=== PATIENT | male | born 1960 ===

== ENCOUNTER 2016-05-16 21:04 | Inpatient (IN) ==
[2016-05-16] MEDS ORDERED: MEROPENEM 1,000 MG in SODIUM CHLORIDE 0.9% 100 ML IV STA (21:26)
[2016-05-16] MEDS ORDERED: SODIUM CHLORIDE 0.9% 1,000 ML IV STA (21:26)
[2016-05-16] MEDS ORDERED: ONDANSETRON 4 MG/2 ML VIAL IV STA (21:26)
[2016-05-16] MEDS ORDERED: methylPREDNISolone SOD SUC 125 MG/2 ML VIAL IV STA (21:26)
[2016-05-16] MEDS ORDERED: ALBUTEROL 2.5 MG/3 ML NEB RESP TX SCH (21:30)
[2016-05-16 21:40] LABS: Basophils # 0.1 10*3/uL (0.0-0.2); Basophils % 0.3 % (0.0-0.8); Hematocrit 33.3 VOL% (42.0-52.0); Hemoglobin 10.4 GM/DL (14.0-18.0); Immature Granulocytes % 0.6 %; Immature Granulocytes Absolute 0.11 #; Lymphocytes # 0.1 10*3/uL (1.4-4.0); Lymphocytes % 0.8 % (21.2-54.2); Mean Corpuscular HGB Conc 31.2 GM/DL (32-36); Mean Corpuscular Hemoglobin 28 PG (27-34); Mean Corpuscular Volume 89.5 FL (87-102); Mean Platelet Volume 14.2 FL (9.6-12.0); Monocytes % 5.1 % (1.7-12.7); NRBC # 0.02 10*3/uL; Neutrophils # 17.2 10*3/uL (1.4-7.4); Neutrophils % 93.2 % (38.7-73.9); Platelet Count 126 T/CUMM (130-400); Red Blood Count 3.72 MC/CUMM (3.8-5.5); Red Cell Distribution Width 16.5 % (9.3-17.3); White Blood Count 18.5 T/CUMM (4-12)
--- NOTE | 2016-05-16 21:43 | Emergency Department Note ---
Arrival - Arrival Chief Complaint: Shortness of Breath Stated Complaint: short of breath ED Nursing Triage Note: pt to room per [facility] ems. pt had radiation wednesday. pt luis sandoval for pharogeal ca. blood glucose 482 per ems. pt coughing thick secretions. sats. 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 The patient has been treated for his pharyngeal carcinoma with radiation and chemotherapy. After a radiation treatment 10 days ago he had acute erythema and progressive edema of the face and scalp. From what the relates radiation was continued with ever increasing allergic breakdown of the face and head. Currently the patient appears more like a burn patient rather than an allergic reaction.he is in obvious respiratory distress and frequently has periods of significant productive cough with difficulty clearing sputum. Because of his condition he cannot even speak to give his history and what history has been gleaned, is from the . Onset (ago): day(s) (Patient presents 6 days post onset of symptoms) Consistency: constant Severity: severe Allergies/Adverse Reactions: Allergies Allergy/AdvReac Type Severity Reaction Status Date / Time No Known Allergies Allergy Verified 05/16/16 21:14 Home Medications: Home Medications Medication Instructions Recorded Confirmed Type Doxycycline Monohydrate 20 ml PEG BID 05/16/16 05/16/16 History HYDROcodone/ACETAMIN 7.5-325 1 tablet PEG Q4-6H 05/16/16 05/16/16 History [[place] 7.5-325] Nystatin [Nystatin Oral Susp] 5 ml PEG QID 05/16/16 05/16/16 History diphenhydrAMINE HCl 2 teaspoon PEG Q12HR 05/16/16 05/16/16 History [DiphenhydrAMINE Liquid] prednisoLONE LIQUID [prednisoLONE 4 ml PEG BID 05/16/16 05/16/16 History Soln] Review of System - Review of System 12 point system: reviewed and no additional remarkable complaints except as stated - Review of System Constitutional: Present: as per HPI Respiratory: Present: as per HPI Skin: Present: as per HPI Medical,Surgical,& Family Hx - Medical History Cardio: History of: Hypertension Neurology: No history of: Seizures HEENT: History of: Ear Problem ([place]), Eye Problem (GLASSES), Dental Problems, Oral Cancer (nasopahryngeal) Endocrine: History of: Diabetes Mellitus (NIDDM) Musculoskeletal: History of: Back/Neck Problems (NECK PAIN) - Family History Family History: Reports;: Family Cancer (BROTHER), Family Diabetes (SISTER), Family Hypertension (SISTER), Family Stroke (FATHER) - Social History Smoking Status: Smoker, status unknown Frequency of Alcohol Use: None Type of Drug Use: Unknown Exam Physical Examination: GENERAL: Chronically ill ill appearing male with frequent paroxysms of cough. HEENT: Normocephalic. Extensive's called the skin of the face and scalp secondary to presumed radiation reaction. Dirt dry mucous membranes mucous membranes. EOMI. PERRLA. Ear nose and throat reveal parched lining NECK: Supple. No adenopathy. CARDIAC: Regular. No murmurs. Heart rate 130 CHEST: Diffuse large airway rhonchi. Moderate respiratory distress. O2 sat 90% ABDOMEN: Soft. Nontender. Active bowel sounds. Feeding gastrostomy noted EXTREMITIES: No trauma. Normal ROM. No pedal edema. SKIN: No diaphoresis. No rash. Scalded skin as above NEURO: Alert. Oriented 3. Motor, sensory, vibratory intact. No focal deficits. Vital Signs: Vital Signs Temperature 99.6 F 05/16/16 21:04 Pulse Rate 142 H 05/16/16 22:00 Respiratory Rate 22 05/16/16 22:00 Blood Pressure 112/72 05/16/16 22:00 O2 Sat by Pulse Oximetry 99 05/16/16 22:00 Course - Reevaluation(s) Reevaluation #1: Discussed with family the need for hospitalization and the critical nature of his disease. - Consultations Consultation #1: Discussed with Dr. Murdock of oncology who will admit the patient for further evaluation treatment. Results - Labs CBC & BMP: 05/16/16 21:14 05/16/16 21:14 Labs: I have reviewed the laboratory and noted the elevated white blood cell count BUN liver function studies and greatly elevated blood sugar - Diagnostic Findings Procedure: Chest x-ray: image reviewed by me, report reviewed by me (Bilateral pneumonia and presumed bilateral metastatic masses) Disposition Clinical Impression: Bilateral pneumonia, Hyperglycemia, Metastatic pharyngeal carcinoma Case discussed with: patient's family Disposition: Still a Patient Condition: Critical Time of Disposition: 22:32
[2016-05-16] MEDS ORDERED: TERBUTALINE 1 MG/1 ML VIAL SUBCUT ONE (21:45)
[2016-05-16] MEDS ORDERED: MEROPENEM 1,000 MG VIAL IV ONE (21:45)
[2016-05-16] MEDS ORDERED: ONDANSETRON 4 MG/2 ML VIAL ONE (21:46)
[2016-05-16] MEDS ORDERED: methylPREDNISolone SOD SUC 125 MG/2 ML VIAL ONE (21:46)
[2016-05-16 21:48] LABS: INR 1.1; PT Patient Result 12.2 SECS; Partial Thromboplastin Time 34.2 SECS (0-40)
[2016-05-16 21:54] LABS: Alanine Aminotransferase 122 U/L (16-61); Albumin 2.1 G/DL (3.4-5.0); Alkaline Phosphatase 153 U/L (45-117); Aspartate Amino Transferase 114 U/L (0-37); Blood Urea Nitrogen 71 MG/DL (7-18); Calcium 9.3 MG/DL (8.5-10.1); Osmolality,Calculated 328.1 MOS/KG (273-304); Potassium 4.3 MMOL/L (3.5-5.1); Sodium 142 MMOL/L (136-145); Total Protein 5.8 G/DL (6.4-8.3); Troponin I Only < 0.015 NG/ML (0.00-0.045)
[2016-05-16] MEDS: TERBUTALINE 1 MG/1 ML VIAL SUBCUT SCH ×2 (21:55→22:21)
[2016-05-16 21:56] LABS: Glucose 554 MG/DL (74-106)
--- NOTE | 2016-05-16 22:00 | XRay Report ---
Portable chest Date: 05/16/2016 Clinical history: Shortness of breath Comparison: 02/09/2016 Technique: Portable AP sitting chest Findings: The heart is larger in size. Progressive diffuse parenchymal findings in both lungs with nodular-appearing densities which are more pronounced on the left. Persistent relative elevation of the right hemidiaphragm with small pleural effusions. Stable mediastinum with degenerative changes. Interposition of right with progressive gaseous distention. Post operative findings in the upper abdomen. Impression: Findings consistent with bilateral pneumonia. However there are indeterminate nodular densities and follow-up chest x-ray recommended to exclude masses. Interposition of the bowel the right with progressive gaseous distention of the abdomen which could be related to ileus, distal bowel obstruction, etc. PROCEDURE INTERPRETED AT [facility] DEPARTMENT OF RADIOLOGY Final Report Signed by: Dr. Farzana Hayes
[2016-05-16 22:11] LABS: Band Neutrophils 2 % (0-10); Lymphocytes 1 % (20-55); Segmented Neutrophils 96 % (50-85); Total Cells Counted 100
[2016-05-16] MEDS ORDERED: INSULIN REGULAR 100 UNIT/ML SUBCUT STA (22:11)
[2016-05-16] MEDS ORDERED: INSULIN REGULAR 100 UNIT/ML IV STA (22:11)
[2016-05-16] MEDS ORDERED: SODIUM CHLORIDE 0.9% 2,000 ML IV STA (22:11)
[2016-05-16] MEDS ORDERED: INSULIN REGULAR 100 UNIT/ML ONE (22:15)
[2016-05-16] MEDS ORDERED: VANCOMYCIN INJ 1,000 MG in SODIUM CHLORIDE 0.9% 250 ML IV STA (22:21)
[2016-05-16] MEDS ORDERED: ONDANSETRON 4 MG/2 ML VIAL IV PRN (22:24)
[2016-05-16] MEDS ORDERED: HYDROmorphone 2 MG/1 ML VIAL IV PRN (22:24)
[2016-05-16] MEDS ORDERED: INSULIN REGULAR DRIP 100 ML IV SCH (22:30)
[2016-05-16] MEDS ORDERED: SODIUM CHLORIDE 0.9% 1,000 ML IV SCH (22:30)
[2016-05-16] MEDS ORDERED: VANCOMYCIN 1,000 MG VIAL ONE (23:01)
[2016-05-16 23:15] LABS: Apearance,Urine CLEAR (Clear); Bilirubin,Urine Negative (Negative); Blood, Urine Negative (Negative); Glucose,Urine (UA) >=500 mg/dL (Negative); Ketones,Urine Negative (Negative); Mucus,Urine Occasional /LPF (Occasional); Nitrite,Urine Negative (Negative); Protein,Urine Negative; Urine Color Yellow (Yellow); Urine Specific Gravity 1.018 (1.001-1.035); Urine Urobilinogen < 2.0 EU/DL (0.2-1.0); WBC,Urine 4 /HPF (0-6)
[2016-05-16] MEDS: ALBUTEROL/IPRATROPIUM 3 ML NEB RESP TX SCH (23:20)
[2016-05-17 00:50] LABS: Apearance,Urine CLEAR (Clear); Bilirubin,Urine Negative (Negative); Blood, Urine Small mg/dL (Negative); Glucose,Urine (UA) >=500 mg/dL (Negative); Hyaline Casts,Urine 1 /LPF (0-3); Ketones,Urine Negative (Negative); Nitrite,Urine Negative (Negative); Protein,Urine Negative; RBC,Urine 2 /HPF (0-4); Squamous Epithelial Cell,Urine Occasional /HPF (0-10); Urine Color Yellow (Yellow); Urine Specific Gravity 1.013 (1.001-1.035); Urine Urobilinogen < 2.0 EU/DL (0.2-1.0); WBC,Urine 25 /HPF (0-6)
--- NOTE | 2016-05-17 00:52 | Oncology History&Physical ---
Assessment and Plan (1) Pneumonia Status: Acute Assessment and plan: bilateral pneumonia on a nonrebreather mask - continue with vanco and meropenem - will check blood cultures - continue with nonrebreather mask - continue with IVF - continue with NEBs scheduled - continue with solumderol 80 mg IV BID covering for radiation pneumonitis and patient on steroids outpatient Current Visit: Yes (2) Diabetes Status: Acute Assessment and plan: glucose > 500 in ER - continue with insulin with fingersticks Current Visit: Yes (3) Head and neck cancer Status: Acute Assessment and plan: metastatic to liver with significant elevations in liver enzymes - significant radiation dermatitis to eyes and forehead - will use lubrifresh and aguaphor to rash - holding chemotherapy while acutely ill - per family wishes patient is DNR/DNI Current Visit: No History of Present Illness Chief complaint: shortness of breath History of present illness: Mr. Alston is a 56 year old male with PMHx of smoker, diabetes and metastatic nasopharyngeal carcinoma currently on chemotherapy and radiation. Per family patient was doing well 1 week ago he started with a productive cough followed by shortness of breath and fevers for last couple days. Per daughter patient had been tolerating chemotherapy well. In ER patient with a significant bilateral pneumonia, LFT elevation, radiation rash, thick sputum, and high oxygen need. Discussed with family very guarded prognosis given severity of pneumonia and metastatic nasopharyngeal carcinoma. Discussed with family code status since on a nonrebreather mask and family wishes for patient to be DNR and DNI. Home Medications Medication Instructions Recorded Confirmed Type Doxycycline Monohydrate 20 ml PEG BID 05/16/16 05/16/16 History HYDROcodone/ACETAMIN 7.5-325 1 tablet PEG Q4-6H 05/16/16 05/16/16 History [[place] 7.5-325] Nystatin [Nystatin Oral Susp] 5 ml PEG QID 05/16/16 05/16/16 History diphenhydrAMINE HCl 2 teaspoon PEG Q12HR 05/16/16 05/16/16 History [DiphenhydrAMINE Liquid] prednisoLONE LIQUID [prednisoLONE 4 ml PEG BID 05/16/16 05/16/16 History Soln] Allergies Allergy/AdvReac Type Severity Reaction Status Date / Time No Known Allergies Allergy Verified 05/16/16 21:14 Medical,Surgical,& Family Hx - Medical History Cardio: History of: Hypertension Psychological: No history of: Violent Behavior Neurology: No history of: Seizures HEENT: History of: Ear Problem ([place]), Eye Problem (GLASSES), Dental Problems, Oral Cancer (nasopahryngeal) Endocrine: History of: Diabetes Mellitus (NIDDM) Musculoskeletal: History of: Back/Neck Problems (NECK PAIN) - Family History Family History: Reports;: Family Cancer (BROTHER), Family Diabetes (SISTER), Family Hypertension (SISTER), Family Stroke (FATHER) - Social History Smoking Status: Smoker, status unknown Frequency of Alcohol Use: None Type of Drug Use: Unknown ROS unobtainable: due to mental status, due to delirium, other (thick secretions unable to communicate well) Exam - Constitutional Vitals: Period Temp Pulse Resp BP Sys/Kyle Pulse Ox Last 24 Hr 99.2 F-99.2 F 136-148 20-39 102-127/66-91 87-98 General appearance: severe distress - Respiratory Respiratory exam: Present: other (bilateral coarse rhonchi) - Cardiovascular Cardiovascular exam: Present: tachycardia - GI/Abdominal GI/Abdominal exam: Absent: guarding, mass, tenderness - Extremities Exam Extremities exam: Present: edema - Neurological Exam Neurological exam: Present: altered Results - Labs CBC & BMP: 05/16/16 21:14 05/16/16 21:14
[2016-05-17] MEDS ORDERED: DEXTROSE 50% 25 GM/50 ML VIAL IV PRN ×2 (01:10→14:44)
[2016-05-17] MEDS ORDERED: GLUCAGON 1 MG VIAL IM PRN ×2 (01:10→14:44)
[2016-05-17] MEDS ORDERED: SKIN HEALING OINT (AQUAPHOR) 50 GM TUBE TOP PRN (01:12)
[2016-05-17] MEDS: SODIUM CHLORIDE 0.9% 1,000 ML IV SCH ×2 (01:48→10:03)
[2016-05-17] MEDS: HEPARIN 5,000 UNIT/1 ML VIAL SUBCUT SCH ×3 (03:12→18:28)
[2016-05-17] MEDS: MORPHINE 2 MG/1 ML SYRINGE IV PRN ×4 (03:12→23:23)
[2016-05-17] MEDS: ALBUTEROL/IPRATROPIUM 3 ML NEB RESP TX SCH ×6 (04:05→23:43)
[2016-05-17] MEDS: INSULIN REGULAR 100 UNIT/ML SUBCUT SCH ×4 (05:09→18:28)
[2016-05-17] MEDS: TERBUTALINE 1 MG/1 ML VIAL SUBCUT SCH (05:16)
[2016-05-17] MEDS ORDERED: methylPREDNISolone SOD SUC 125 MG/2 ML VIAL IV SCH (06:00)
[2016-05-17] MEDS: MEROPENEM 1,000 MG in SODIUM CHLORIDE 0.9% 100 ML IV SCH ×3 (06:02→23:23)
--- NOTE | 2016-05-17 07:32 | XRay Report ---
Exam: XR KUB Date: 05/16/2016 10:10 PM Comparison: 02/06/2016 Indication: Generalized abdominal pain Technique:[Supine abdomen] Findings: Significant progressive gaseous distention of the bowel, especially the colon. The left colon appears more decompressed. It is difficult to evaluate for possible free air with no decubitus film obtained. Probable thickening of the wall of the colon. Persistent postoperative findings with PEG tube. Progressive parenchymal findings in the lungs. Degenerative changes are noted. Progressive soft tissue density in the pelvis.. Impression: Significant progressive gaseous distention of the colon with interposition on the right. This finding could be related to possible ileus, bowel obstruction, etc. PEG tube with postoperative findings. Increased density in the pelvis which could be related to distended urinary bladder, mass, etc. Significant progressive parenchymal findings in the lungs. Follow-up is recommended. PROCEDURE INTERPRETED AT [facility] DEPARTMENT OF RADIOLOGY Final Report Signed by: Dr. Farzana Hayes
[2016-05-17 07:45] LABS: Basophils # 0.1 10*3/uL (0.0-0.2); Basophils % 0.4 % (0.0-0.8); Hematocrit 29.6 VOL% (42.0-52.0); Hemoglobin 9.4 GM/DL (14.0-18.0); Immature Granulocytes % 0.6 %; Immature Granulocytes Absolute 0.08 #; Lymphocytes # 0.1 10*3/uL (1.4-4.0); Lymphocytes % 0.6 % (21.2-54.2); Mean Corpuscular HGB Conc 31.8 GM/DL (32-36); Mean Corpuscular Hemoglobin 29 PG (27-34); Mean Corpuscular Volume 89.7 FL (87-102); Mean Platelet Volume 13.5 FL (9.6-12.0); Monocytes # 0.5 10*3/uL (0.11-0.8); Monocytes % 3.8 % (1.7-12.7); NRBC # 0.02 10*3/uL; Neutrophils # 13.3 10*3/uL (1.4-7.4); Neutrophils % 94.6 % (38.7-73.9); Red Cell Distribution Width 16.3 % (9.3-17.3)
[2016-05-17 07:46] LABS: Platelet Count 106 T/CUMM (130-400)
[2016-05-17 08:05] LABS: Albumin 1.7 G/DL (3.4-5.0); Bilirubin,Total 1.3 MG/DL (0.2-1.0); Calcium 8.6 MG/DL (8.5-10.1); Osmolality,Calculated 319.9 MOS/KG (273-304); Potassium 3.6 MMOL/L (3.5-5.1); Total Protein 4.9 G/DL (6.4-8.3)
[2016-05-17 08:15] LABS: Band Neutrophils 8 % (0-10); Hypochromasia 1+; Ovalocytes Slight; Platelet Estimate Decreased; Segmented Neutrophils 90 % (50-85); Target Cells Few; Total Cells Counted 100
[2016-05-17] MEDS: VANCOMYCIN INJ 1,000 MG in SODIUM CHLORIDE 0.9% 250 ML IV SCH ×2 (08:55→21:18)
[2016-05-17] MEDS: PANTOPRAZOLE 40 MG VIAL IV SCH (08:55)
[2016-05-17 11:29] LABS: ABG Base Excess 2.7 MMOL/L (-2.5-2.5); ABG HCO3 26.8 MMOL/L (20-26); ABG Oxygen Saturation 98.7 % (95-100); ABG PCO2 51.4 MM HG (35-48); ABG PH 7.359 (7.35-7.45); ABG TCO2 26.4 MMOL/L (23-27)
--- NOTE | 2016-05-17 11:29 | XRay Report ---
Portable chest Date: 05/17/2016 Clinical history: Shortness of breath, congestion Comparison: 05/16/2016 Technique: Portable AP sitting chest Findings: The heart is borderline in size. Progressive parenchymal findings especially on the left with multiple nodular densities. Persistent gaseous distention of visualized bowel with prior cholecystectomy. Degenerative changes are noted. Nodular densities. Impression: Progressive pneumonia especially involving the left lung. Multiple indeterminate nodular densities which can be seen with masses. Persistent significant gaseous distention of the visualized bowel with interposition of the bowel on the right. Follow-up recommended. PROCEDURE INTERPRETED AT [facility] DEPARTMENT OF RADIOLOGY Final Report Signed by: Dr. Farzana Hayes
[2016-05-17] MEDS: SODIUM CHLORIDE 0.45% 1,000 ML IV SCH ×2 (12:01→21:24)
[2016-05-17] MEDS ORDERED: DEXTROSE 10% 1,000 ML IV PRN (14:44)
--- NOTE | 2016-05-17 15:00 | Pulmonology Consult Note ---
History of Present Illness Chief complaint: Bilateral pneumonia. Nasopharyngeal carcinoma. History of present illness: Mr. Alston is a 56 year old white male whom I been asked to see in pulmonary consultation. This patient's followed by Dr. Rice. He has been receiving radiation therapy for nasopharyngeal carcinoma. There is nasopharyngeal carcinoma has been metastatic to the supraclavicular areas and the liver. He is also had nodularity in his lungs but that is not definitely known if this is metastatic disease or some other condition. This patient is developed a skin infection with multiple pustules on both sides of his forehead and face he also is a good bit of erythema of his face and scabbing about his nose. He has had a cough productive of purulent sputum. His chest x-ray showed bilateral infiltrates. Patient is not able to give a review of systems. Above is taken from other doctors charts. Allergies. None known Home medicines. See below Past history. Nasopharyngeal carcinoma with bilateral supraclavicular metastases and liver metastases. COPD. High blood pressure. Non-insulin- dependent diabetes chronic back and neck pain. Family history. His brother had a cancer his sister had diabetes and high blood pressure is father had a stroke social history patient is . His says he stopped smoking about a year ago. She said he does not use alcohol. KUB. Ileus Chest x-ray. Heart size is normal. There is a bilateral background of nodules which are fairly homogeneous in both lungs. There are bilateral apical and lower lung infiltrates. No cultures are reported. ABGs on FiO2 of 80% (not on mechanical ventilation). PH is 7.359. PCO2 is 51.4. PO2 is 136. Bicarb is 26.8. Lab. Sodium is 151. Potassium is 3.6 chloride is 113. Creatinine is 0.5. BUN is 43. Glucoses have ranged from 128-554. Total bilirubin is 1.3 transaminases are elevated. Alkaline phosphorus is normal. Protein and albumin are low at 4.9 and 1.7. Globulin is 3.2. Urine is negative. White blood cell count on admission was 18,500 with 93.26. Platelets are 106,000. H& H is 9.4/29.6. The patient's old records were reviewed. Physical exam. Vital signs. See below. General. Patient is arousable but appears acutely and severely ill. Neurologic. Patient's cranial nerves are intact. He moves all 4 extremities. Face. Generalized erythema of forehead eyelids lower face. There is also generalized edema. Eyelids are markedly swollen. There are bilateral pustules over the forehead and these extend somewhat to the lower face. Chest large airway congestion. I do not hear any definite wheezes. Heart. No gallop. Valvular sounds are very loud. Abdomen. Distended. I do not hear any bowel sounds. Lower extremities. Chronic venous stasis. Some edema in a patient who appears to be dehydrated. The remainder the exam is negative or impossible to do in this patient's condition. Impression. 1. 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 Radiation therapy. Chemotherapy. 2. Acute skin infection of the forehead and face. 3. Bilateral pneumonia 4. Background of bilateral pulmonary nodules of undetermined etiology. This could be cancerous or infectious. 5. Significant history of tobacco abuse. Stop smoking a year ago 6. Hypernatremia 7. Ileus. 8. As per Dr. Rice. Prognosis is poor Plan. 1. I agree with vancomycin and Mayte 2. Daily chest x-ray, ABGs, CBC, BMP 3. Doppler venograms of the lower extremities 4. Deep venous thrombophlebitis prevention prophylaxis. I agree with heparin. 5. NG tube with intermittent suction of possible 6. TPN 7. Low dose steroids. Will give Solu-Medrol. 8. Aspirate pustule and sent for Gram stains and cultures 9. Blood cultures. 10. Sputum for Gram stain culture and sensitivity 11. Cold agglutinins 12. Legionella titer 13. See orders Home Medications Medication Instructions Recorded Confirmed Type Doxycycline Monohydrate 20 ml PEG BID 05/16/16 05/16/16 History HYDROcodone/ACETAMIN 7.5-325 1 tablet PEG Q4-6H 05/16/16 05/16/16 History [[place] 7.5-325] Nystatin [Nystatin Oral Susp] 5 ml PEG QID 05/16/16 05/16/16 History diphenhydrAMINE HCl 2 teaspoon PEG Q12HR 05/16/16 05/16/16 History [DiphenhydrAMINE Liquid] prednisoLONE LIQUID [prednisoLONE 4 ml PEG BID 05/16/16 05/16/16 History Soln] Allergies Allergy/AdvReac Type Severity Reaction Status Date / Time No Known Allergies Allergy Verified 05/16/16 21:14 Exam ([facility] H&P - Constitutional Vitals: Period Temp Pulse Resp BP Sys/Kyle Pulse Ox Last 24 Hr 97.9 F-99.2 F 87-148 18-39 101-127/66-91 87-100 Medical,Surgical,& Family Hx - Medical History Cardio: History of: Hypertension Psychological: No history of: Violent Behavior Neurology: No history of: Seizures HEENT: History of: Ear Problem ([place]), Eye Problem (GLASSES), Dental Problems, Oral Cancer (nasopahryngeal) Endocrine: History of: Diabetes Mellitus (NIDDM) Musculoskeletal: History of: Back/Neck Problems (NECK PAIN) - Family History Family History: Reports;: Family Cancer (BROTHER), Family Diabetes (SISTER), Family Hypertension (SISTER), Family Stroke (FATHER) - Social History Smoking Status: Smoker, status unknown Frequency of Alcohol Use: None Type of Drug Use: Unknown Results - Labs CBC & BMP: 05/17/16 07:24 05/17/16 07:24
[2016-05-17] MEDS: methylPREDNISolone SOD SUC 40 MG/1 ML VIAL IV SCH (15:30)
[2016-05-17] MEDS: FAT EMULSION 20% 250 ML IV SCH (16:00)
--- NOTE | 2016-05-17 16:20 | Ultrasound Report ---
Exam: Bilateral lower extremity venous Doppler ultrasound Comparison: None Clinical history: Shortness of breath Technique: Duplex scan of the lower extremity veins using B-mode/grayscale scaled imaging and Doppler spectral analysis and color flow. Findings: Major venous structures of the lower extremities demonstrate a normal course and caliber. Normal color-flow study and spectral analysis. There is normal compression and augmentation of bilateral common femoral, superficial femoral and popliteal veins. The proximal bilateral greater saphenous veins appear to be patent. Impression: No evidence to suggest deep venous thrombosis within either lower extremity. Ultrasound images were captured and stored. PROCEDURE INTERPRETED AT [facility] DEPARTMENT OF RADIOLOGY Final Report Signed by: Dr. Farzana Hayes
[2016-05-17] MEDS ORDERED: MULTIVITAMIN INJ 10 ML, TRACE ELEMENTS (5) 1 ML in AMINO ACIDS/DEXT/LYTES 4.25-5% 2,000 ML IV SCH (17:00)
[2016-05-17] MEDS: MUPIROCIN 2% OINT 22 GM TUBE TOP SCH ×2 (17:18→21:18)
[2016-05-17] MEDS: MINERAL OIL/PETROLATUM OPH OINT 3.5 GM TUBE BOTH EYES SCH (21:18)
[2016-05-17] MEDS: INSULIN GLARGINE 100 UNIT/ML SUBCUT SCH (21:18)
[2016-05-18] MEDS: INSULIN REGULAR 100 UNIT/ML SUBCUT SCH ×5 (01:44→23:58)
[2016-05-18] MEDS: HEPARIN 5,000 UNIT/1 ML VIAL SUBCUT SCH ×3 (01:59→18:32)
[2016-05-18 03:45] LABS: Allen Test Positive
[2016-05-18 03:46] LABS: ABG Base Excess 5.6 MMOL/L (-2.5-2.5); ABG HCO3 29.4 MMOL/L (20-26); ABG Oxygen Saturation 94.9 % (95-100); ABG PCO2 49.7 MM HG (35-48); ABG PH 7.406 (7.35-7.45); ABG PO2 74.6 MM HG (80-95); ABG TCO2 28.4 MMOL/L (23-27)
[2016-05-18] MEDS: ALBUTEROL/IPRATROPIUM 3 ML NEB RESP TX SCH ×6 (03:46→23:22)
[2016-05-18] MEDS: methylPREDNISolone SOD SUC 40 MG/1 ML VIAL IV SCH ×2 (04:00→15:00)
[2016-05-18 04:58] LABS: Basophils % 0.2 % (0.0-0.8); Hematocrit 31.7 VOL% (42.0-52.0); Hemoglobin 9.7 GM/DL (14.0-18.0); Immature Granulocytes % 1.8 %; Immature Granulocytes Absolute 0.27 #; Lymphocytes # 0.2 10*3/uL (1.4-4.0); Lymphocytes % 1.4 % (21.2-54.2); Mean Corpuscular HGB Conc 30.6 GM/DL (32-36); Mean Corpuscular Hemoglobin 28 PG (27-34); Mean Corpuscular Volume 91.4 FL (87-102); Mean Platelet Volume 14.1 FL (9.6-12.0); Monocytes # 0.7 10*3/uL (0.11-0.8); Monocytes % 4.6 % (1.7-12.7); NRBC # 0.03 10*3/uL; Neutrophils # 13.6 10*3/uL (1.4-7.4); Platelet Count 87 T/CUMM (130-400); Red Blood Count 3.47 MC/CUMM (3.8-5.5); Red Cell Distribution Width 16.5 % (9.3-17.3); White Blood Count 14.8 T/CUMM (4-12)
[2016-05-18 05:31] LABS: Magnesium 1.9 MG/DL (1.8-2.4); Phosphorous 3.2 MG/DL (2.5-4.9); Prealbumin < 3.0 MG/DL (20-40)
[2016-05-18 05:32] LABS: Albumin 1.6 G/DL (3.4-5.0); Anisocytosis 1+; Band Neutrophils 6 % (0-10); Bilirubin,Total 1.2 MG/DL (0.2-1.0); Lymphocytes 1 % (20-55); Metamyelocytes 2 %; Microcytosis 1+; Ovalocytes 1+; Platelet Estimate Decreased; Potassium 3.6 MMOL/L (3.5-5.1); Segmented Neutrophils 88 % (50-85); Total Cells Counted 100; Total Protein 4.7 G/DL (6.4-8.3)
[2016-05-18] MEDS: MEROPENEM 1,000 MG in SODIUM CHLORIDE 0.9% 100 ML IV SCH ×3 (06:08→22:50)
[2016-05-18] MEDS ORDERED: FUROSEMIDE 40 MG/4 ML VIAL ONE (07:22)
[2016-05-18] MEDS: MORPHINE 2 MG/1 ML SYRINGE IV PRN ×3 (07:45→21:35)
[2016-05-18] MEDS: SODIUM CHLORIDE 0.45% 1,000 ML IV SCH ×2 (08:09→18:32)
--- NOTE | 2016-05-18 08:16 | Oncology Progress Note ---
Assessment and Plan (1) Cellulitis and abscess of face Status: Acute Current Visit: Yes (2) Malnutrition Status: Acute Current Visit: No (3) Head and neck cancer Status: Acute Current Visit: No (4) Pneumonia Status: Acute Current Visit: Yes Oncology Subjective PN Interval history: Mr. Alston is a 56-year-old [place] male currently receiving concurrent chemotherapy with radiation. He presented to clinic last week with severe dermatitis of his nose and cheeks. I gave him a dose of steroids in the clinic and placed him on doxycycline. His sister stated that he continued to worsen over the next few days and was ultimately taken to the emergency room where he was found to have severe swelling and erythema of his entire face and scalp. There was also pustules over the erythematous area. There is concern that he had pneumonia with increased oxygen requirement. He was transferred [facility] for further evaluation and care. He is currently on high flow oxygen. He is being treated with vancomycin and Merrem. The nurse states that his skin actually looks better today than it did yesterday. He is DNR and his sister's is considering stopping all treatments. He still had 2 more weeks left of radiation. There is reports of liver metastases but I was unaware of this and I am not sure where this information came from. I will look to see if he had outside scans in [place] last week. As far as my understanding at this point, he only has locally advanced disease. Exam - Constitutional Vitals: Period Temp Pulse Resp BP Sys/Kyle Pulse Ox Last 24 Hr 97.2 F-98.4 F 104-130 19-38 95-151/46-97 91-100 General appearance: normal weight, mild distress - Head Head Exam: Present: other (diffuse erythema and pustules located over his nares , cheeks, forehead, and scalp) - Eye Eye Exam: Present: periorbital swelling - Neck Neck exam: Absent: lymphadenopathy, thyromegaly - Respiratory Respiratory exam: Absent: decreased breath sounds, wheezes - Cardiovascular Cardiovascular exam: Present: tachycardia. Absent: JVD - GI/Abdominal GI/Abdominal exam: Present: soft. Absent: ascites, mass - Neurological Exam Neurological exam: Present: altered - Psychiatric Psychiatric exam: Present: flat affect Results - Labs CBC & BMP: 05/18/16 04:31 05/18/16 04:31 Lab Results: I have reviewed the past 24 hour labs
--- NOTE | 2016-05-18 09:04 | Physician Query Form ---
CLICK EDIT DOCUMENT TO SELECT QUERY ANSWER --> OK --> SIGN Gracie Alcala RN Clinical Operations And Maintenance Manager W) [phone] (f) [phone] [email or web address] PROVIDERS: Make your selection(s) from the choices in EACH section by typing an "x" and enter comments in the comment section. Please use your independent medical judgment in providing your response. This request does not imply that any particular answer is desired or expected. CLINICAL INDICATORS: (Providers should not edit this section) Based on documentation of "Acute bilateral pneumonia" Sats as low as 87% on venturi mask. Maintaining saturation on nonrebreather. If possible, please further clarify the type and acuity of respiratory diagnosis : ACUITY: ( x) Acute ( ) Chronic ( ) Acute on Chronic TYPE: (x ) Respiratory failure with hypoxia ( ) Respiratory failure with hypercapnia ( ) Respiratory Arrest ( ) Postprocedural/postoperative respiratory failure ( ) Respiratory Insufficiency ( ) ARDS (Adult/Acute Respiratory Distress Syndrome) ( ) Other, please specify: ( ) Clinically unable to determine Recognized criteria for respiratory failure PH <7.35 or >7.45 PO2 <60 PCO2 >50 RR >24 O2 Sat <90% on RA or <95% on O2 Use of accessory muscles Unable to speak in full sentences Intubation is not required COMMENTS: Use of terms such as suspected, likely, or probable (associated with a specific diagnosis that is being evaluated, monitored, or treated as if it exists) are acceptable and can be restated in the discharge summary if not ruled out. MTDD
[2016-05-18] MEDS: PANTOPRAZOLE 40 MG VIAL IV SCH (09:21)
[2016-05-18] MEDS: VANCOMYCIN INJ 1,000 MG in SODIUM CHLORIDE 0.9% 250 ML IV SCH (09:21)
[2016-05-18] MEDS: MUPIROCIN 2% OINT 22 GM TUBE TOP SCH ×2 (09:21→21:43)
--- NOTE | 2016-05-18 09:25 | XRay Report ---
XR chest 1V portable Indication: Pneumonia. Chest one view: Since yesterday, lungs remain hypoinflated with significant patchy opacities throughout both lungs, especially in the upper lobes. No new densities are seen. Heart size remains normal. Prominent gaseous distention of the colon is stable. Right upper quadrant surgical clips again shown. Impression: No change. PROCEDURE INTERPRETED AT [facility] DEPARTMENT OF RADIOLOGY Final Report Signed by: Pj Vela M.D.
--- NOTE | 2016-05-18 12:40 | Pulmonology Progress Note ---
<Jeremy Burt - Last Filed: 05/18/16 12:40> Exam (Progress Note) - Constitutional Vitals: Period Temp Pulse Resp BP Sys/Kyle Pulse Ox Last 24 Hr 97.7 F-98.4 F 104-130 24-40 95-151/46-97 91-100 Results - Labs CBC & BMP: 05/18/16 04:31 05/18/16 04:31 <Darshan Rose - Last Filed: 05/18/16 18:28> Pulmonary - PN: Subj Interval history: This is a 56-year-old white male whom I saw in pulmonary consultation on 2016. He is followed by Dr. Jeremy Rice. 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 He also had nodularity in his lungs and the cause is not clear. He was admitted with an acute illness. My impressions were 1. 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 Radiation therapy. Chemotherapy. 2. Acute skin infection of the forehead and face. 3. Bilateral pneumonia 4. Background of bilateral pulmonary nodules of undetermined etiology. This could be cancerous or infectious. 5. Significant history of tobacco abuse. Stop smoking a year ago 6. Hypernatremia 7. Ileus. 8. As per Dr. Rice. Prognosis is poor 05/18/2016. Today's x-ray is a little bit better he has some 5 lobe infiltrates. He also has a huge ileus. ABGs on FiO2 of 80% showed pH is 7.406 , PCO2 is 49.7, PO2 74.6, bicarb is 29.4. Sodium is elevated 150 with a potassium at 3.6 and a chloride of 110. Creatinine is 0.50 BUN is 37 white count is 14,800 with 92% segs. H&H is 9.7/31.7 and platelets are 87,000. Cultures from the urine, cultures from the skin of the head and cultures from the sputum are all growing gram-positive cocci. ID and sensitivities are pending. The patient is receiving meropenem and vancomycin. He is also on Solu -Medrol 40 IV push every 12 hours and sliding scale insulin. Medicines have been reviewed.Doppler venogram showed no evidence of deep venous thrombophlebitis in the lower extremities. On physical exam this patient looks better today. Physical exam. Vital signs. See below Skin. Multiple infectious lesions on the face and head. Markedly improved in 1 day. Neck. Symmetrical. No meningismus Chest. Large airway congestion. Heart. No gallop Abdomen. Nondistended. Only a rare faint bowel sound was heard Lower extremities. Nothing to suggest deep venous thrombophlebitis. Neurologic. Cranial nerves appear to be intact the patient has some movement in all 4 extremities. The remainder the physical exam is noncontributory Plan. 1. 05/18/2016 I agree with vancomycin and Mayte. Gram-positive cocci from skin , urine and sputum 2. Daily chest x-ray, ABGs, CBC, BMP 3. Doppler venograms of the lower extremities 4. Deep venous thrombophlebitis prevention prophylaxis. I agree with heparin. 5. NG tube with intermittent suction 6. TPN 7. Low dose steroids. Will give Solu-Medrol. 8. Aspirate pustule and sent for Gram stains and cultures 9. Blood cultures. 10. Sputum for Gram stain culture and sensitivity 11. Cold agglutinins 12. Legionella titer 13. See orders Exam (Progress Note) - Constitutional Vitals: Period Temp Pulse Resp BP Sys/Kyle Pulse Ox Last 24 Hr 97.7 F-98.4 F 104-123 18-42 103-151/56-97 91-100 Results - Labs CBC & BMP: 05/18/16 04:31 05/18/16 04:31
[2016-05-18] MEDS: FAT EMULSION 20% 250 ML IV SCH (15:00)
[2016-05-18] MEDS: TRACE ELEMENTS (5) 1 ML, MULTIVITAMIN INJ 10 ML, INSULIN REGULAR 30 UNIT in AMINO ACIDS... IV SCH (18:32)
[2016-05-18] MEDS: MINERAL OIL/PETROLATUM OPH OINT 3.5 GM TUBE BOTH EYES SCH (21:41)
[2016-05-18] MEDS: INSULIN GLARGINE 100 UNIT/ML SUBCUT SCH (21:41)
[2016-05-18] MEDS: VANCOMYCIN INJ 1,250 MG in SODIUM CHLORIDE 0.9% 250 ML IV SCH (21:53)
[2016-05-19] MEDS: MORPHINE 2 MG/1 ML SYRINGE IV PRN ×4 (00:45→15:36)
[2016-05-19] MEDS: HEPARIN 5,000 UNIT/1 ML VIAL SUBCUT SCH ×4 (02:08→17:16)
[2016-05-19 03:04] LABS: ABG Base Excess 10.3 MMOL/L (-2.5-2.5); ABG HCO3 34.1 MMOL/L (20-26); ABG Oxygen Saturation 96.9 % (95-100); ABG PCO2 53.9 MM HG (35-48); ABG PH 7.436 (7.35-7.45); ABG PO2 88.9 MM HG (80-95); ABG TCO2 33.2 MMOL/L (23-27); Allen Test Positive
[2016-05-19] MEDS: methylPREDNISolone SOD SUC 40 MG/1 ML VIAL IV SCH ×2 (03:04→15:35)
[2016-05-19] MEDS: ALBUTEROL/IPRATROPIUM 3 ML NEB RESP TX SCH ×6 (03:11→22:53)
[2016-05-19 04:58] LABS: Basophils % 0.2 % (0.0-0.8); Hematocrit 30.9 VOL% (42.0-52.0); Hemoglobin 9.8 GM/DL (14.0-18.0); Immature Granulocytes % 2.1 %; Immature Granulocytes Absolute 0.26 #; Lymphocytes # 0.2 10*3/uL (1.4-4.0); Lymphocytes % 1.4 % (21.2-54.2); Mean Corpuscular HGB Conc 31.7 GM/DL (32-36); Mean Corpuscular Hemoglobin 28 PG (27-34); Mean Platelet Volume 14.2 FL (9.6-12.0); Monocytes # 0.6 10*3/uL (0.11-0.8); Monocytes % 4.7 % (1.7-12.7); NRBC # 0.03 10*3/uL; Neutrophils # 11.3 10*3/uL (1.4-7.4); Neutrophils % 91.6 % (38.7-73.9); Red Blood Count 3.47 MC/CUMM (3.8-5.5); Red Cell Distribution Width 15.9 % (9.3-17.3); White Blood Count 12.3 T/CUMM (4-12)
[2016-05-19 05:00] LABS: Platelet Count 76 T/CUMM (130-400)
[2016-05-19 05:22] LABS: Calcium 8.5 MG/DL (8.5-10.1); Osmolality,Calculated 314.7 MOS/KG (273-304); Potassium 3.5 MMOL/L (3.5-5.1)
[2016-05-19 05:26] LABS: Band Neutrophils 2 % (0-10); Hypochromasia 1+; Nucleated Red Blood Cells 1 (0-5); Ovalocytes Slight; Platelet Estimate Decreased; Segmented Neutrophils 93 % (50-85); Total Cells Counted 100
[2016-05-19 05:27] LABS: Microcytosis 1+
[2016-05-19] MEDS: INSULIN REGULAR 100 UNIT/ML SUBCUT SCH ×4 (05:50→23:27)
[2016-05-19] MEDS: MEROPENEM 1,000 MG in SODIUM CHLORIDE 0.9% 100 ML IV SCH ×3 (05:50→21:20)
--- NOTE | 2016-05-19 08:07 | EKG Report ---
Stationary ECG Study [facility] Test Date: 05/18/2016 3:14:02 PM Pat Name: CLIFFORD KAYE Department: Room: 120 Gender: M District [employer] Manager: LUPILLO : 1960 Requested by: Chris Guerrero Order Number: [id number] Reading MD: SARAH SAAB Intervals [place] Rate: 107 P: 48 [place]: 161 QRS: 13 QRSD: 74 T: 43 QT: 322 QTc: 385 Interpretive Statements SINUS TACHYCARDIA Electronically Signed On 05-20-16 12:32:32 CDT by SARAH SAAB [email or web address]
--- NOTE | 2016-05-19 08:12 | XRay Report ---
History: Congestion, pneumonia Date: 05/19/2016 Study: Chest x-ray AP portable Comparison exam: 05/18/2016 The cardiomediastinal silhouette is unchanged. There is continued scattered patchy and hazy pneumonia throughout both lungs, grossly similar. There is no increase in pleural effusion. There is no pneumothorax. Osseous structures are similar. Impression: Continued bilateral pneumonia without significant interval change PROCEDURE INTERPRETED AT [facility] DEPARTMENT OF RADIOLOGY Final Report Signed by: Dr. Zee Mena
--- NOTE | 2016-05-19 08:14 | XRay Report ---
History: Ileus Date: 05/19/2016 Study: KUB Comparison exam: May 16, 2016 There is decreased gaseous distention of large and small bowel compared to the previous study, though there is some residual mild colonic distention. There is no gross mass lesion. A PEG tube overlies the upper central abdomen. Surgical clips overlie the right upper abdomen and pelvis. There is mild lumbar spondylosis. Impression: Improving ileus compared to the previous study PROCEDURE INTERPRETED AT [facility] DEPARTMENT OF RADIOLOGY Final Report Signed by: Dr. Zee Mena
--- NOTE | 2016-05-19 08:19 | Oncology Progress Note ---
Assessment and Plan (1) Cellulitis and abscess of face Status: Acute Current Visit: Yes (2) Malnutrition Status: Acute Current Visit: No (3) Head and neck cancer Status: Acute Current Visit: No (4) Pneumonia Status: Acute Current Visit: Yes Oncology Subjective PN Interval history: Mr. Alston is skin on his scalp and nasal bridge is significantly improved. Cultures from his wound and sputum are growing gram-positive cocci. There is also positive for MRSA. He has been on vancomycin since admission. I think it is huynh for now to continue with Merrem until we have the antibiotic fully speciated and sensitivities back. His x-ray this morning continues to show bilateral infiltrates. I spoke with his sister yesterday and they are considering doing no further treatment if he recovers from his current illness. He may be even further debilitated once his infection is cleared, so we will sort out at that time if he will need placement or if he can return back to his previous living arrangement of taking care of himself. He will likely be in the hospital for a few more days. I think I will keep him in ICU for 1 more day but I encouraged the nurses to try to decrease his oxygen flow rate if he tolerates. On exam, he sounds congested so his IV fluid rate was decreased. Exam - Constitutional Vitals: Period Temp Pulse Resp BP Sys/Kyle Pulse Ox Last 24 Hr 98.0 F-98.9 F 79-122 18-49 103-150/56-99 80-100 General appearance: normal weight, mild distress - Neck Neck exam: Absent: lymphadenopathy, thyromegaly - Respiratory Respiratory exam: Present: other (Coarse breath sounds bilaterally). Absent: decreased breath sounds, wheezes - Cardiovascular Cardiovascular exam: Present: tachycardia. Absent: JVD - GI/Abdominal GI/Abdominal exam: Present: soft. Absent: ascites, mass - Neurological Exam Neurological exam: Present: altered - Skin Skin exam: Present: erythema, rash Results - Labs CBC & BMP: 05/19/16 04:05 05/19/16 04:05
[2016-05-19] MEDS: SODIUM CHLORIDE 0.45% 1,000 ML IV SCH ×2 (10:11→10:40)
[2016-05-19] MEDS: PANTOPRAZOLE 40 MG VIAL IV SCH (10:14)
[2016-05-19] MEDS: MUPIROCIN 2% OINT 22 GM TUBE TOP SCH ×2 (10:15→20:11)
[2016-05-19] MEDS: VANCOMYCIN INJ 1,250 MG in SODIUM CHLORIDE 0.9% 250 ML IV SCH ×2 (10:38→20:10)
--- NOTE | 2016-05-19 12:07 | Pulmonology Progress Note ---
Pulmonary - PN: Subj Interval history: Jeremy uBrt, ANP-BC, GNP-BC, acting as scribe for Dr. Darshan Rose This is a 56-year-old male who we saw in initial pulmonary consultation on 05/17/2016. He is followed by Dr. Jeremy Guerrero. The patient has been receiving radiation therapy for nasopharyngeal carcinoma. He has metastatic disease to the supraclavicular areas and the liver. He also had nodularity in his lungs and the cause is not clear. He was admitted with an acute illness. At the time of our initial consultation, our impressions were: 1. 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 Radiation therapy. Chemotherapy. 2. Acute skin infection of the forehead and face. 3. Bilateral pneumonia 4. Background of bilateral pulmonary nodules of undetermined etiology. This could be cancerous or infectious. 5. Significant history of tobacco abuse. Stop smoking a year ago 6. Hypernatremia 7. Ileus. 8. As per Dr. Guerrero. Prognosis is poor 05/18/2016. Today's x-ray is a little bit better he has some 5 lobe infiltrates. He also has a huge ileus. ABGs on FiO2 of 80% showed pH is 7.406 , PCO2 is 49.7, PO2 74.6, bicarb is 29.4. Sodium is elevated 150 with a potassium at 3.6 and a chloride of 110. Creatinine is 0.50 BUN is 37 white count is 14,800 with 92% segs. H&H is 9.7/31.7 and platelets are 87,000. Cultures from the urine, cultures from the skin of the head and cultures from the sputum are all growing gram-positive cocci. ID and sensitivities are pending. The patient is receiving meropenem and vancomycin. He is also on Solu -Medrol 40 IV push every 12 hours and sliding scale insulin. Medicines have been reviewed.Doppler venogram showed no evidence of deep venous thrombophlebitis in the lower extremities. On physical exam this patient looks better today. 05/19/2016. The patient's KUB today shows that the ileus is improving. The patient is receiving PPN and this should be continued for the time being. His chest x-ray shows bilateral infiltrates but they are beginning to improve. His sputum culture, abscess culture, and urine cultures have all grown methicillin- resistant staph aureus. He is on vancomycin and Merrem. We made no changes to this today. Of note, another gram-positive cocci is also showing on the abscess culture. That final ID and sensitivity has not been reported. Blood cultures are negative at 1 day. Cold agglutinins are negative at 1:4. Legionella is still pending. Medications have been reviewed. We made no changes. Labs been reviewed. White count is 12,300 with 91.6% segs; H&H 9.8/30.9; platelet count has decreased to 76,000; creatinine 0.40, BUN 41, sodium 152 ( hypernatremia), potassium 3.5. ABGs this morning on an FiO2 of 80% showed a pH of 7.436, PCO2 53.9, PO2 88.9, bicarb 34.1, and oxygen saturation 96.9%. Exam (Progress Note) - Constitutional Vitals: Period Temp Pulse Resp BP Sys/Kyle Pulse Ox Last 24 Hr 98.9 F 79-118 16-49 114-150/60-99 80-100 Exam: Chest with loose large airway congestion and no appreciable wheeze Face is showing marked improvement of his previously noted pustules Heart no gallop Abdomen less distended with rare bowel sounds Extremities with nothing to suggest acute deep venous thrombophlebitis Psychiatric arousable but acutely ill-appearing Neurologic moves all 4 extremities Plan: Chest x-ray and ABGs in the morning. Continue PPN. Your notes about the patient's family's wishes for possible hospice are noted. Results - Labs CBC & BMP: 05/19/16 04:05 05/19/16 04:05
[2016-05-19] MEDS: FAT EMULSION 20% 250 ML IV SCH (15:00)
[2016-05-19] MEDS: TRACE ELEMENTS (5) 1 ML, MULTIVITAMIN INJ 10 ML, INSULIN REGULAR 30 UNIT in AMINO ACIDS... IV SCH (17:16)
[2016-05-19] MEDS: INSULIN GLARGINE 100 UNIT/ML SUBCUT SCH (20:11)
[2016-05-19] MEDS: MINERAL OIL/PETROLATUM OPH OINT 3.5 GM TUBE BOTH EYES SCH (20:12)
[2016-05-20] MEDS: HEPARIN 5,000 UNIT/1 ML VIAL SUBCUT SCH ×3 (00:35→16:41)
[2016-05-20] MEDS: methylPREDNISolone SOD SUC 40 MG/1 ML VIAL IV SCH ×2 (02:27→15:12)
[2016-05-20] MEDS: ALBUTEROL/IPRATROPIUM 3 ML NEB RESP TX SCH ×5 (03:11→20:13)
[2016-05-20 03:19] LABS: ABG Base Excess 10.7 MMOL/L (-2.5-2.5); ABG HCO3 34.3 MMOL/L (20-26); ABG Oxygen Saturation 93.8 % (95-100); ABG PCO2 45.1 MM HG (35-48); ABG TCO2 32.1 MMOL/L (23-27); Allen Test Positive
--- NOTE | 2016-05-20 04:15 | Pulmonology Progress Note ---
Pulmonary - PN: Subj Interval history: This is a 56-year-old white male whom I saw in pulmonary consultation on 2016. He is followed by Dr. Jeremy Rice. 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 He also had nodularity in his lungs and the cause is not clear. He was admitted with an acute illness. My impressions were 1. 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 Radiation therapy. Chemotherapy. 2. Acute skin infection of the forehead and face. 3. Bilateral pneumonia 4. Background of bilateral pulmonary nodules of undetermined etiology. This could be cancerous or infectious. 5. Significant history of tobacco abuse. Stop smoking a year ago 6. Hypernatremia 7. Ileus. 8. As per Dr. Rice. Prognosis is poor 05/18/2016. Today's x-ray is a little bit better he has some 5 lobe infiltrates. He also has a huge ileus. ABGs on FiO2 of 80% showed pH is 7.406 , PCO2 is 49.7, PO2 74.6, bicarb is 29.4. Sodium is elevated 150 with a potassium at 3.6 and a chloride of 110. Creatinine is 0.50 BUN is 37 white count is 14,800 with 92% segs. H&H is 9.7/31.7 and platelets are 87,000. Cultures from the urine, cultures from the skin of the head and cultures from the sputum are all growing gram-positive cocci. ID and sensitivities are pending. The patient is receiving meropenem and vancomycin. He is also on Solu -Medrol 40 IV push every 12 hours and sliding scale insulin. Medicines have been reviewed.Doppler venogram showed no evidence of deep venous thrombophlebitis in the lower extremities. On physical exam this patient looks better today. 05/20/2016. Patient has grown methicillin-resistant staph aureus from his blood , from his urine, from pustules on his head, from his sputum. He is on the correct antibiotics and he looks much better.Today's chest x-rays show 5 lobe infiltrates which are improving on a daily basis. ABGs on FiO2 28% show a pH of 7.50, PCO2 is dropped to 45.1 and PO2 is 66. Bicarb is 34. Today's labs pending. Face and scalp lesions look much better Physical exam. Vital signs. See below Skin. Multiple infectious lesions on the face and head. Markedly improved Neck. Symmetrical. No meningismus Chest. Large airway congestion. Heart. No gallop Abdomen. Nondistended. Only a rare faint bowel sound was heard Lower extremities. Nothing to suggest deep venous thrombophlebitis. Neurologic. Cranial nerves appear to be intact the patient has some movement in all 4 extremities. The remainder the physical exam is noncontributory Plan. 1. 05/18/2016 I agree with vancomycin and Mayte. Gram-positive cocci from skin , urine and sputum 2. Daily chest x-ray, ABGs, CBC, BMP 3. Doppler venograms of the lower extremities 4. Deep venous thrombophlebitis prevention prophylaxis. I agree with heparin. 5. NG tube with intermittent suction 6. TPN 7. Low dose steroids. Will give Solu-Medrol. 8. Aspirate pustule and sent for Gram stains and cultures 9. Blood cultures. 10. Sputum for Gram stain culture and sensitivity 11. Cold agglutinins 12. Legionella titer 13. 05/20/2016. Patient is making good progress. See today's note above Exam (Progress Note) - Constitutional Vitals: Period Temp Pulse Resp BP Sys/Kyle Pulse Ox Last 24 Hr 97.1 F-98.9 F 60-112 16-47 107-150/63-97 88-100 Results - Labs CBC & BMP: 05/19/16 04:05 05/19/16 04:05
[2016-05-20 04:44] LABS: Basophils % 0.2 % (0.0-0.8); Hematocrit 30.3 VOL% (42.0-52.0); Hemoglobin 9.8 GM/DL (14.0-18.0); Immature Granulocytes % 2.2 %; Immature Granulocytes Absolute 0.25 #; Lymphocytes # 0.1 10*3/uL (1.4-4.0); Lymphocytes % 0.9 % (21.2-54.2); Mean Corpuscular HGB Conc 32.3 GM/DL (32-36); Mean Corpuscular Hemoglobin 28 PG (27-34); Mean Corpuscular Volume 86.6 FL (87-102); Monocytes # 0.6 10*3/uL (0.11-0.8); Monocytes % 5.1 % (1.7-12.7); NRBC # 0.03 10*3/uL; Neutrophils # 10.5 10*3/uL (1.4-7.4); Neutrophils % 91.6 % (38.7-73.9); Platelet Count 72 T/CUMM (130-400); Red Cell Distribution Width 15.9 % (9.3-17.3); White Blood Count 11.5 T/CUMM (4-12)
[2016-05-20 05:13] LABS: Band Neutrophils 2 % (0-10); Lymphocytes 1 % (20-55); Segmented Neutrophils 92 % (50-85); Total Cells Counted 100
[2016-05-20 05:14] LABS: Hypochromasia 1+; Microcytosis 1+; Platelet Estimate Decreased
[2016-05-20] MEDS: MEROPENEM 1,000 MG in SODIUM CHLORIDE 0.9% 100 ML IV SCH ×3 (05:18→22:37)
[2016-05-20 05:20] LABS: Calcium 7.8 MG/DL (8.5-10.1); Osmolality,Calculated 295.8 MOS/KG (273-304); Potassium 3.4 MMOL/L (3.5-5.1)
[2016-05-20] MEDS: INSULIN REGULAR 100 UNIT/ML SUBCUT SCH ×3 (06:02→19:22)
--- NOTE | 2016-05-20 07:39 | Oncology Progress Note ---
Assessment and Plan (1) Cellulitis and abscess of face Status: Acute Current Visit: Yes (2) Malnutrition Status: Acute Current Visit: No (3) Head and neck cancer Status: Acute Current Visit: No (4) Pneumonia Status: Acute Current Visit: Yes Oncology Subjective PN Interval history: 56-year-old Gwendolyn male with advanced head and neck cancer recently receiving concurrent chemotherapy and radiation and had approximately 2-3 weeks left when he presented to the emergency room with severe facial and scalp swelling with numerous pustules. He also was hypoxic and was found to have bilateral infiltrates on x-ray. He was placed on vancomycin and Merrem and admitted to the ICU. He improved significantly over the next few days. His wound cultures and sputum cultures are growing MRSA. There is also one blood culture with gram -positive cocci. He is severely debilitated debilitated and his family is debating if they want to even attempt any further treatment once he recovers from his current situation. We will likely keep him in the hospital for at least another week to receive IV antibiotics and while we sort out his placement issues. They're considering having him admitted to the [facility]. He is DNR now. Even before we began treatment, his functional status was very poor which included partial blindness and partial deafness. He is requiring much less oxygen now and is maintaining saturation in the upper 90s on just 2 L nasal cannula. His blood pressure is stable. I will transferred out of ICU today. We will continue with vancomycin and Merrem for a few more days. Exam - Constitutional Vitals: Period Temp Pulse Resp BP Sys/Kyle Pulse Ox Last 24 Hr 97.1 F-98.7 F 60-112 16-44 107-150/63-97 92-100 General appearance: normal weight, no acute distress - Neck Neck exam: Absent: lymphadenopathy, thyromegaly - Respiratory Respiratory exam: Present: CTAB. Absent: wheezes - Cardiovascular Cardiovascular exam: Present: RRR. Absent: JVD - GI/Abdominal GI/Abdominal exam: Present: soft. Absent: mass - Neurological Exam Neurological exam: Present: alert, oriented X3 - Psychiatric Psychiatric exam: Present: normal affect, normal mood - Skin Skin exam: Present: warm, dry Results - Labs CBC & BMP: 05/20/16 04:17 05/20/16 04:17 Lab Results: I have reviewed the past 24 hour labs
--- NOTE | 2016-05-20 07:59 | XRay Report ---
Exam: XR chest 1V portable Indication: Congestion, pneumonia Comparison study: 05/19/2016 Findings: Multifocal patchy airspace opacities are noted throughout both lungs which are slightly decreased in prominence from the prior study. There is no pneumothorax. Cardiac silhouette and mediastinal contours appear stable from prior. Osseous structures are stable. Impression: Slight decrease in prominence of multifocal patchy airspace opacities suggestive of multifocal infectious/inflammatory infiltrates. PROCEDURE INTERPRETED AT [facility] DEPARTMENT OF RADIOLOGY Final Report Signed by: Stewart Babb
[2016-05-20] MEDS: MUPIROCIN 2% OINT 22 GM TUBE TOP SCH ×2 (09:47→22:01)
[2016-05-20] MEDS: PANTOPRAZOLE 40 MG VIAL IV SCH (09:47)
[2016-05-20] MEDS: SODIUM CHLORIDE 0.45% 1,000 ML IV SCH (09:53)
[2016-05-20] MEDS ORDERED: VANCOMYCIN INJ 1,500 MG in SODIUM CHLORIDE 0.9% 500 ML IV ONE (10:00)
[2016-05-20] MEDS: VANCOMYCIN INJ 1,250 MG in SODIUM CHLORIDE 0.9% 250 ML IV SCH ×2 (10:11→19:19)
[2016-05-20] MEDS: MORPHINE 2 MG/1 ML SYRINGE IV PRN ×3 (15:11→22:02)
[2016-05-20] MEDS: FAT EMULSION 20% 250 ML IV SCH (16:41)
[2016-05-20] MEDS: TRACE ELEMENTS (5) 1 ML, MULTIVITAMIN INJ 10 ML, INSULIN REGULAR 30 UNIT in AMINO ACIDS... IV SCH ×2 (19:14→20:26)
[2016-05-20] MEDS: MINERAL OIL/PETROLATUM OPH OINT 3.5 GM TUBE BOTH EYES SCH (22:02)
[2016-05-20] MEDS ORDERED: ALPRAZolam 0.25 MG TABLET PO PRN (23:36)
[2016-05-20] MEDS ORDERED: MYLANTA/LIDO VISC 2:1 300 ML BOTTLE SWISH/SPIT PRN (23:36)
[2016-05-20] MEDS ORDERED: chlorproMAZINE INJ 50 MG in SODIUM CHLORIDE 0.9% 100 ML IV PRN (23:36)
[2016-05-20] MEDS ORDERED: chlorproMAZINE 25 MG TABLET PO PRN (23:36)
[2016-05-20] MEDS ORDERED: MAGNESIUM HYDROXIDE SUSP 30 ML UDCUP PO PRN (23:36)
[2016-05-20] MEDS ORDERED: ALUMINUM/MAGNES/SIMETH MAX STR 30 ML UDCUP PO PRN (23:36)
[2016-05-20] MEDS ORDERED: PROMETHAZINE INJ 25 MG in SODIUM CHLORIDE 0.9% 50 ML IV PRN (23:36)
[2016-05-20] MEDS ORDERED: BENZTROPINE 2 MG/2 ML AMP IV PRN (23:36)
[2016-05-20] MEDS ORDERED: MYLANTA/LIDO VISC 2:1 300 ML BOTTLE SWISH/SWAL PRN (23:36)
[2016-05-20] MEDS ORDERED: TEMAZEPAM 7.5 MG CAPSULE PO PRN (23:36)
[2016-05-20] MEDS ORDERED: chlorproMAZINE INJ 25 MG in SODIUM CHLORIDE 0.9% 100 ML IV PRN (23:36)
[2016-05-20] MEDS ORDERED: LOPERAMIDE 2 MG CAPSULE PO PRN ×2 (23:36)
[2016-05-20] MEDS ORDERED: diphenhydrAMINE CAP 25 MG CAPSULE PO PRN (23:36)
[2016-05-20] MEDS ORDERED: traMADol 50 MG TABLET PO PRN (23:36)
[2016-05-20] MEDS ORDERED: ACETAMINOPHEN 325 MG TABLET PO PRN (23:36)
[2016-05-20] MEDS ORDERED: LACTULOSE 20 GM/30 ML UDCUP PO PRN (23:36)
[2016-05-20] MEDS ORDERED: guaiFENesin 200 MG/10 ML UDCUP PO PRN (23:36)
[2016-05-21] MEDS: ALBUTEROL/IPRATROPIUM 3 ML NEB RESP TX SCH ×7 (00:06→20:44)
[2016-05-21] MEDS ORDERED: LORazepam 2 MG/1 ML VIAL IV PRN (00:07)
[2016-05-21] MEDS: INSULIN GLARGINE 100 UNIT/ML SUBCUT SCH (00:41)
[2016-05-21] MEDS: INSULIN REGULAR 100 UNIT/ML SUBCUT SCH ×4 (01:00→18:13)
[2016-05-21] MEDS: methylPREDNISolone SOD SUC 40 MG/1 ML VIAL IV SCH ×2 (02:53→14:16)
[2016-05-21] MEDS: HEPARIN 5,000 UNIT/1 ML VIAL SUBCUT SCH ×3 (02:54→18:11)
[2016-05-21] MEDS: VANCOMYCIN INJ 1,250 MG in SODIUM CHLORIDE 0.9% 250 ML IV SCH ×3 (02:54→18:12)
[2016-05-21 03:52] LABS: ABG Base Excess 7.1 MMOL/L (-2.5-2.5); ABG HCO3 30.9 MMOL/L (20-26); ABG Oxygen Saturation 97.2 % (95-100); ABG PCO2 53.1 MM HG (35-48); ABG PH 7.405 (7.35-7.45); ABG PO2 99.2 MM HG (80-95); ABG TCO2 29.9 MMOL/L (23-27)
[2016-05-21 05:40] LABS: Basophils % 0.2 % (0.0-0.8); Hematocrit 33.3 VOL% (42.0-52.0); Hemoglobin 10.6 GM/DL (14.0-18.0); Immature Granulocytes % 4.2 %; Immature Granulocytes Absolute 0.76 #; Lymphocytes # 0.1 10*3/uL (1.4-4.0); Lymphocytes % 0.4 % (21.2-54.2); Mean Corpuscular HGB Conc 31.8 GM/DL (32-36); Mean Corpuscular Hemoglobin 28 PG (27-34); Mean Corpuscular Volume 88.1 FL (87-102); Mean Platelet Volume 13.9 FL (9.6-12.0); Monocytes # 0.8 10*3/uL (0.11-0.8); Monocytes % 4.5 % (1.7-12.7); NRBC # 0.03 10*3/uL; Neutrophils # 16.3 10*3/uL (1.4-7.4); Neutrophils % 90.7 % (38.7-73.9); Red Blood Count 3.78 MC/CUMM (3.8-5.5); Red Cell Distribution Width 15.8 % (9.3-17.3)
[2016-05-21 05:42] LABS: Platelet Count 99 T/CUMM (130-400)
[2016-05-21 06:02] LABS: Calcium 8.3 MG/DL (8.5-10.1); Osmolality,Calculated 284.7 MOS/KG (273-304); Potassium 3.9 MMOL/L (3.5-5.1)
[2016-05-21 06:05] LABS: Phosphorous 4.3 MG/DL (2.5-4.9); Prealbumin 10.3 MG/DL (20-40)
[2016-05-21 06:11] LABS: Band Neutrophils 1 % (0-10); Hypochromasia 2+; Lymphocytes 1 % (20-55); Platelet Estimate Decreased; Segmented Neutrophils 95 % (50-85); Total Cells Counted 100
[2016-05-21] MEDS: MEROPENEM 1,000 MG in SODIUM CHLORIDE 0.9% 100 ML IV SCH ×2 (06:15→14:17)
--- NOTE | 2016-05-21 07:33 | XRay Report ---
Exam: XR chest 1V portable Indication: Congestion, pneumonia Comparison study: 05/20/2016 Findings: Cardiac silhouette remains some contours appear similar to prior. Diffuse patchy opacities throughout both lungs are not significantly changed from prior. There is no pneumothorax. Osseous structures appear stable from prior.. Impression: No significant change in diffuse opacities throughout both lungs concerning for multifocal infectious/inflammatory infiltrates superimposed on chronic interstitial scarring. PROCEDURE INTERPRETED AT [facility] DEPARTMENT OF RADIOLOGY Final Report Signed by: Stewart Babb
[2016-05-21] MEDS: MORPHINE 2 MG/1 ML SYRINGE IV PRN ×3 (09:34→18:13)
--- NOTE | 2016-05-21 09:46 | Oncology Progress Note ---
Oncology Subjective PN Interval history: This patient is being treated for diffuse cellulitis due to MRSA. He is on vancomycin this. He has advanced head and neck cancer in his family is going to take him home on hospice but we probably need to treat him with intravenous vancomycin a while longer. In addition, he is on hyperalimentation which we are discontinuing today since it will actually encourage growth of the bacteria and in addition the patient has decided to go on hospice so there is no reason to continue the hyperalimentation from this standpoint. He is receiving comfort measures only. He is very critically ill. He is blind and partially deaf. He has extensive cellulitis of the face with weeping and rawness of the skin of his entire face. He is on parenteral narcotics for pain. He is gravely and terminally ill. He has multiple terminal processes going on. Exam - Constitutional Vitals: Period Temp Pulse Resp BP Sys/Kyle Pulse Ox Last 24 Hr 97.9 F-98.9 F 58-109 17-25 117-138/58-90 90-99 Results - Labs CBC & BMP: 05/21/16 04:58 05/21/16 04:58
[2016-05-21] MEDS: PANTOPRAZOLE 40 MG VIAL IV SCH (10:15)
[2016-05-21] MEDS: DEXT 5% NACL 0.45% KCL 20 MEQ 20 MEQ/1,000 ML BAG IV SCH ×2 (10:15→18:33)
--- NOTE | 2016-05-21 10:27 | Pulmonology Progress Note ---
Pulmonary - PN: Subj Interval history: Jeremy Burt, ANP-BC, GNP-BC, acting as scribe for Dr. Darshan Rose This is a 56-year-old male who we saw in initial pulmonary consultation on 05/17/2016. He is followed by Dr. Jeremy Guerrero. The patient has been receiving radiation therapy for nasopharyngeal carcinoma. He has metastatic disease to the supraclavicular areas and the liver. He also had nodularity in his lungs and the cause is not clear. He was admitted with an acute illness. At the time of our initial consultation, our impressions were: 1. 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 Radiation therapy. Chemotherapy. 2. Acute skin infection of the forehead and face. 3. Bilateral pneumonia 4. Background of bilateral pulmonary nodules of undetermined etiology. This could be cancerous or infectious. 5. Significant history of tobacco abuse. Stop smoking a year ago 6. Hypernatremia 7. Ileus. 8. As per Dr. Guerrero. Prognosis is poor 05/18/2016. Today's x-ray is a little bit better he has some 5 lobe infiltrates. He also has a huge ileus. ABGs on FiO2 of 80% showed pH is 7.406 , PCO2 is 49.7, PO2 74.6, bicarb is 29.4. Sodium is elevated 150 with a potassium at 3.6 and a chloride of 110. Creatinine is 0.50 BUN is 37 white count is 14,800 with 92% segs. H&H is 9.7/31.7 and platelets are 87,000. Cultures from the urine, cultures from the skin of the head and cultures from the sputum are all growing gram-positive cocci. ID and sensitivities are pending. The patient is receiving meropenem and vancomycin. He is also on Solu -Medrol 40 IV push every 12 hours and sliding scale insulin. Medicines have been reviewed.Doppler venogram showed no evidence of deep venous thrombophlebitis in the lower extremities. On physical exam this patient looks better today. 05/19/2016. The patient's KUB today shows that the ileus is improving. The patient is receiving PPN and this should be continued for the time being. His chest x-ray shows bilateral infiltrates but they are beginning to improve. His sputum culture, abscess culture, and urine cultures have all grown methicillin- resistant staph aureus. He is on vancomycin and Merrem. We made no changes to this today. Of note, another gram-positive cocci is also showing on the abscess culture. That final ID and sensitivity has not been reported. Blood cultures are negative at 1 day. Cold agglutinins are negative at 1:4. Legionella is still pending. 05/20/2016. Patient has grown methicillin-resistant staph aureus from his blood , from his urine, from pustules on his head, from his sputum. He is on the correct antibiotics and he looks much better.Today's chest x-rays show 5 lobe infiltrates which are improving on a daily basis. ABGs on FiO2 28% show a pH of 7.50, PCO2 is dropped to 45.1 and PO2 is 66. Bicarb is 34. Today's labs pending. Face and scalp lesions look much better. 05/21/16. The patient was resting and I did not disturb him. He is now noted to be on comfort measures. His CXR is the same. He has had diffuse cellulitis of the face and scalp. This is improving, but certainly not resolved. He has grown MRSA from his blood, urine, pustule cultures, and sputum. He is on Vancomycin for this. He is also receiving Merrem for greater coverage. Dr. Cruz's note was reviewed. He will continue with IV Vancomycin and Merrem for a few more days. director of student services are working on hospice arrangements. Medications have been reviewed. We made no changes. Labs been reviewed. White count is 18,000 with 90.7% segs; H&H 10.6/33.3; PLT count 99,000; creatinine 0.30, BUN 29, electrolytes are normal Exam (Progress Note) - Constitutional Vitals: Period Temp Pulse Resp BP Sys/Kyle Pulse Ox Last 24 Hr 97.9 F-98.9 F 58-109 18-25 118-138/58-90 90-99 Exam: Chest with loose large airway congestion and no appreciable wheeze Face is showing marked improvement of his previously noted pustules Heart no gallop Abdomen less distended with rare bowel sounds Extremities with nothing to suggest acute deep venous thrombophlebitis Psychiatric arousable but acutely and chronically ill-appearing Neurologic some movement in all 4 extremities Plan: Comfort measures only status noted. We will stop the ABGs. CBC and BMP in the morning. Continue present treatment. Results - Labs CBC & BMP: 05/21/16 04:58 05/21/16 04:58
[2016-05-21] MEDS: MUPIROCIN 2% OINT 22 GM TUBE TOP SCH (14:19)
[2016-05-21 15:45] VITALS: BP 98/59
--- NOTE | 2016-05-28 08:10 | Discharge Summary ---
Hospital Course - Hospital Course Hospital Course: Mr. lAston was a 56-year-old [place] male with advanced head and neck cancer. He was admitted with bilateral pneumonia and severe cellulitis of his face and scalp. He was in ICU for a few days receiving IV antibiotics. His cellulitis slowly improved and he no longer appeared to be septic. He remained quite lethargic and unresponsive. After discussing his case with his family all agreed that comfort measures would be the best approach from that point forward. He was being planned to transfer to an inpatient hospice facility. However on the evening of 05/22/2016, he . Diagnosis - Discharge Diagnosis (1) Cellulitis and abscess of face Status: Acute (2) Malnutrition Status: Acute (3) Head and neck cancer Status: Acute (4) Pneumonia Status: Acute Discharge Plan - Discharge Data Disposition: - Discharge Medications No Action HYDROcodone/ACETAMIN 7.5-325 [[place] 7.5-325] 1 tablet PEG Q4-6H Doxycycline Monohydrate 20 ml PEG BID prednisoLONE LIQUID [prednisoLONE Soln] 4 ml PEG BID diphenhydrAMINE HCl [DiphenhydrAMINE Liquid] 2 teaspoon PEG Q12HR Nystatin [Nystatin Oral Susp] 5 ml PEG QID - Follow Up or Referral - Forms/Instructions DS: Provider Date of admission: 05/16/16 22:22 Primary care physician: Gwendolyn Martinez MD Attending physician on admission: Chris Guerrero MD Consults: 05/16/16 23:34 Consult to Pharmacy [CONS] Routine Reason for Pharmacy Consult: Dose/Manage Vancomycin 05/17/16 00:25 Consult to Dietitian [CONS] Routine Reason for Dietitian: Dietary Consult Consult Comment: peg tube 05/17/16 10:04 Consult to Wound Care - [place] [CONS] Routine Reason for Wound Care: Wound Care Management Consult Comment: 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
--- NOTE | 2016-07-15 14:19 | Physician Query Form ---
CLICK EDIT DOCUMENT TO SELECT QUERY ANSWER --> OK --> SIGN Christi Rushing RN, CCDS Certified Clinical [employer] W) [phone] (f) [phone] [email or web address] PROVIDERS: Make your selection(s) from the choices in EACH section by typing an "x" and enter comments in the comment section. Please use your independent medical judgment in providing your response. This request does not imply that any particular answer is desired or expected. CLINICAL INDICATORS: (Providers should not edit this section) Patient admitted with pneumonia, WBC 18.5, 8 bands, pulse 132 on admission, blood culture x 2 positive for MRSA, sputum positive for MRSA, urine positive for MRSA and Nares positive for MRSA, treated with IV Merrem and Vancomycin, had acute respiratory failure with hypoxia and ultimately Please clarify which, if any, of the following is the etiology of the above symptoms and treatment rendered: ( x) Sepsis due to a localized infection ( ) Severe Sepsis (sepsis with acute organ failure) - Please specify type acute organ failure: ( ) Septic Shock (severe sepsis with hypotension) ( ) Bacteremia (abnormal lab finding only, does not indicate systemic illness) ( ) Other condition, please specify: ( ) Clinically unable to determine Criteria for Sepsis (SIRS due to an infection) should be based on 2 or more of the following being present: Temperature > 101F or < 96.8F WBC > 12,000 or < 4,000, or > 10% bands Tachycardia HR > 90 beats/minute Tachypnea RR > 20 breaths/minute or PaCO2 > 32mmHg Lactate level > 2.0 mmol/L (>4 is equivalent to severe sepsis) Altered Mental Status Mottling of skin or prolonged capillary refill Non-diabetic hyperglycemia (blood sugar >120 mg/dl) Other evidence of acute organ failure associated with sepsis ( severe sepsis) COMMENTS: Use of terms such as suspected, likely, or probable (associated with a specific diagnosis that is being evaluated, monitored, or treated as if it exists) are acceptable and can be restated in the discharge summary if not ruled out. MTDD
== END 2016-05-21 20:29 | disposition expired | DRG 871 ==
LOC: EDBD → EDUNIT# → N.ED 21:04 → N.EDINP 22:22 → N.CC 23:14 → N.5E 05-20 13:21
PROVIDERS: ADMIT Specialist; ATTEND Specialist